=== PATIENT | female | born 1945 | race Caucasian/White ===

== ENCOUNTER → 2016-09-27 | Outpatient (CLI) | payer MEDICARE ==
--- NOTE | 2016-09-28 11:24 | MM ---
Reason for exam: screening (asymptomatic). Last mammogram was performed 1 year and 1 month ago. History: Patient is postmenopausal and has history of other cancer at age 51. Took hormonal contraceptives for 2 years beginning at age 22. Took estrogen for 10 years beginning at age 51. Took progesterone for 10 years beginning at age 51. Physical Findings: A clinical breast exam by your physician is recommended on an annual basis and results should be correlated with mammographic findings. MG 3D Screening Mammo W/Cad Bilateral CC and MLO view(s) were taken. Prior study comparison: August 15, 2015, bilateral MG screening mammo w CAD. July 18, 2014, bilateral MG screening mammo w CAD. June 26, 2013, bilateral digital screening mammo w/CAD. There are scattered fibroglandular densities. No significant changes when compared with prior studies. ASSESSMENT: Benign, BI-RAD 2 RECOMMENDATION: Routine screening mammogram of both breasts in 1 year.
== END | disposition home or self-care (01) ==
LOC: RADMAMWWP 10:51
PROVIDERS: ATTEND Obstetrics & Gynecology
DX: Z12.31 Encounter for screening mammogram for malignant neoplasm of breast (principal)
CPT/HCPCS: 77063; G0202

== ENCOUNTER → 2017-11-28 | Outpatient (CLI) | payer MEDICARE ==
--- NOTE | 2017-11-28 16:56 | BD ---
EXAMINATION TYPE: Axial Bone Density DATE OF EXAM: 11/28/2017 COMPARISON: NONE CLINICAL HISTORY: 72-year-old female osteoporosis screening Height: 5 FT Weight: 197 FRAX RISK QUESTIONS: RISK FACTORS HISTORY OF: Surgery to Spine/Hip(right/left)/Wrist (right/left): SPINAL STENOSIS RELEASE.LT HIP REPLACED 2015 When: 2013 Active: YES Postmenopausal woman: AGE 51 Take estrogen and/or progesterone medications: TOOK HRT FOR SEV YEARS NOT TAKEN FOR A LONG TIME Lost more than 2 inches in height since high school: YES MEDICATIONS: Additional Medications: MONTELUKAST, PRAVASTATIN, LOSARTIN, ESCITALOPRAM, TRIMATERENE, ASPIRIN, POTAS SIUM , MULTI VITTAMADOL. SONATA Additional History: MONIE CARPAL TUNNEL SURG EXAM MEASUREMENTS: Bone mineral density about the R hip (g/cm2): 1.157 T Score values are as follows: -----R Neck: 0.9 -----R Total: 1.5 Bone mineral density has: DECREASED -6.4 % since study of: 2012 Bone mineral density about the R Wrist (g/cm2): Bone mineral density about the L Wrist (g/cm2): 0.712 T Score values are as follows: -----Dist. R+U: 1.2 -----Prox. R+U: 0.7 -----Radius total: 0.6 BASELINE FOREARM IMPRESSION: Measurements taken in the right hip and left forearm. Normal (Values between +1 and -1 indicate normal bone mass). Consider repeating this study in 5 year s or sooner if there is some new clinical indication. NOTE: T-SCORE=SD OF THE YOUNG ADULT MEAN.
--- NOTE | 2017-11-30 10:49 | MM ---
Reason for exam: screening (asymptomatic). Last mammogram was performed 1 year and 2 months ago. History: Patient is postmenopausal and has history of other cancer at age 51. Took hormonal contraceptives for 2 years beginning at age 22. Took estrogen for 10 years beginning at age 51. Took progesterone for 10 years beginning at age 51. Physical Findings: A clinical breast exam by your physician is recommended on an annual basis and results should be correlated with mammographic findings. MG 3D Screening Mammo W/Cad Bilateral CC and MLO view(s) were taken. Prior study comparison: September 27, 2016, bilateral MG 3d screening mammo w/cad. August 15, 2015, bilateral MG screening mammo w CAD. The breast tissue is heterogeneously dense. This may lower the sensitivity of mammography. Benign appearing bilateral calcifications. No suspicious abnormality. No significant changes when compared with prior studies. ASSESSMENT: Benign, BI-RAD 2 RECOMMENDATION: Routine screening mammogram of both breasts in 1 year.
== END | disposition home or self-care (01) ==
LOC: RADMAMWWP 15:18
PROVIDERS: ATTEND Obstetrics & Gynecology
DX: Z12.31 Encounter for screening mammogram for malignant neoplasm of breast (principal); Z13.820 Encounter for screening for osteoporosis
CPT/HCPCS: 77063; 77067; 77080

== ENCOUNTER → 2018-12-19 | Outpatient (CLI) | payer MEDICARE ==
--- NOTE | 2018-12-21 10:44 | MM ---
Reason for exam: screening (asymptomatic). Last mammogram was performed 1 year and 1 month ago. History: Patient is postmenopausal and has history of other cancer at age 51. Took hormonal contraceptives for 2 years beginning at age 22. Took estrogen for 10 years beginning at age 51. Took progesterone for 10 years beginning at age 51. Physical Findings: A clinical breast exam by your physician is recommended on an annual basis and results should be correlated with mammographic findings. MG 3D Screening Mammo W/Cad Bilateral CC and MLO view(s) were taken. Prior study comparison: November 28, 2017, bilateral MG 3d screening mammo w/cad. September 27, 2016, bilateral MG 3d screening mammo w/cad. The breast tissue is heterogeneously dense. This may lower the sensitivity of mammography. Benign appearing bilateral calcifications. No suspicious abnormality. No significant changes when compared with prior studies. ASSESSMENT: Benign, BI-RAD 2 RECOMMENDATION: Routine screening mammogram of both breasts in 1 year.
== END | disposition home or self-care (01) ==
LOC: RADMAMWWP 13:20
PROVIDERS: ATTEND Obstetrics & Gynecology
DX: Z12.31 Encounter for screening mammogram for malignant neoplasm of breast (principal)
CPT/HCPCS: 77063; 77067

== ENCOUNTER → 2020-01-28 | Outpatient (CLI) | payer MEDICARE ==
--- NOTE | 2020-01-30 09:37 | MM ---
Reason for exam: screening (asymptomatic). Last mammogram was performed 1 year and 1 month ago. History: Patient is postmenopausal and has history of other cancer at age 51. Took hormonal contraceptives for 2 years beginning at age 22. Took estrogen for 10 years beginning at age 51. Took progesterone for 10 years beginning at age 51. Physical Findings: A clinical breast exam by your physician is recommended on an annual basis and results should be correlated with mammographic findings. MG 3D Screening Mammo W/Cad Bilateral CC and MLO view(s) were taken. Prior study comparison: December 19, 2018, bilateral MG 3d screening mammo w/cad. November 28, 2017, bilateral MG 3d screening mammo w/cad. There are scattered fibroglandular densities. No significant changes when compared with prior studies. ASSESSMENT: Benign, BI-RAD 2 RECOMMENDATION: Routine screening mammogram of both breasts in 1 year.
== END | disposition home or self-care (01) ==
LOC: RADMAMWWP 14:52
PROVIDERS: ATTEND Obstetrics & Gynecology
DX: Z12.31 Encounter for screening mammogram for malignant neoplasm of breast (principal)
CPT/HCPCS: 77063; 77067

== ENCOUNTER → 2020-08-27 | Outpatient (CLI) | payer MEDICARE ==
--- NOTE | 2020-08-27 13:59 | P.PAINCN ---
History of Present Illness - Reason for Consult Consult date: 08/27/20 - History of Present Illness This is 75 years old female with a chronic history of severe low back pain, started more than 9 years ago, in 2013 she had lumbar decompression surgery, she had some benefit from the surgery , but she continued to have severe low back pain, the intensity of the pain increased over the last couple of years, the pain is constant and increases with any activity interference with her quality of life, interfere with activity of daily livings, she tried medication without any significant benefit, she tried physical therapy, without any significant benefit, she denies any motor or sensory deficits denies any fever or night sweats, and there is no change in the bowel movement or urination Past Medical History Past Medical History: Hypertension History of Any Multi-Drug Resistant Organisms: None Reported Past Surgical History: Tubal Ligation Additional Past Surgical History / Comment(s): laminectomy 2013 Past Anesthesia/Blood Transfusion Reactions: No Reported Reaction Smoking Status: Former smoker Past Alcohol Use History: Daily Additional Past Alcohol Use History / Comment(s): a glass of wine every night Past Drug Use History: None Reported Medications and Allergies Home Medications Medication Instructions Recorded Confirmed Type Aspirin [Adult Low Dose Aspirin EC] 81 mg PO DAILY 08/27/20 08/27/20 History Escitalopram [Lexapro] 10 mg PO DAILY 08/27/20 08/27/20 History Montelukast [Singulair] 10 mg PO DAILY 08/27/20 08/27/20 History Multivitamin [Multivitamins Adult 1 each PO DAILY 08/27/20 08/27/20 History Gummies] Potassium Chloride [Klor-Con 20] 20 meq PO DAILY 08/27/20 08/27/20 History Pravastatin Sodium [Pravachol] 20 mg PO DAILY 08/27/20 08/27/20 History Psyllium Husk [Metamucil] 0.4 gm PO DAILY 08/27/20 08/27/20 History traMADol-ACETAMINOP 37.5-325MG 37.5 - 325 mg PO DAILY 08/27/20 08/27/20 History [Ultracet] Allergies Allergy/AdvReac Type Severity Reaction Status Date / Time narcotics Allergy Severe Nausea & Uncoded 08/27/20 13:50 Vomiting Physical Exam Vitals: Intake and Output 08/26/20 08/27/20 08/27/20 22:59 06:59 14:59 Other: Weight 86.275 kg Physical Examinations : -Constitutiona : Cooperative , not in acute distress . -HEENT : nech : supple , no Lymphadenopathy , normal thyroid size . : eyes : no ptosis , no icterus, no photophobia . - neurologic : Cranial nerve II to XII intact , no focal neurological deffecit . -psychatric : alert , oriented X 3 , appropriate affect , intact judgment and insight . -Lymphatic : no Lymphadenopathy . - musculoskeltal : Cervical Spine motor stregnth in the deltoid and biceps, normal right side , normal Left side motor stregnth biceps and the wrist extensors normal right side ,normal left side . motor stregnth in the triceps muscle . normal Right side , normal Left side Lumber spine moter stegnth lower extremities ,thigh and legs 5/5 Right side , 5/5 Left side deep tendon reflexes : normal Knee Jerk , normal ankle Jerk lumber facet Loading Test =positive Right , positive Left Range of motion of the lumbar spine Flexion 30 degrees, extension 10 degrees strait leg raising test = negative bilaterally Fabere test= negative bilaterally. Sever tenderness over the Sacroiliac joint on the Right , and Left sides Gaenslen test= positive right ,and positive left . Seated flexion test= positive right ,and positive Left . Results Comments: MRI of the lumbar spine= L3 4 and L4-L5 lumbar laminectomy, multilevel lumbar bulging disc disease and multilevel lumbar facet arthropathy Multilevel lumbar foraminal stenosis, multilevel lumbar spinal canal stenosis Assessment and Plan Plan: Assessment and plan=1-lumbar spondylosis with lumbar facet arthropathy without myelopathy. 2-lumbar degenerative disc disease. 3-lumbar spinal stenosis. 4-history of lumbar laminectomy laminectomy at L3 4 and L4-L5 5-bilateral sacroiliitis. Patient will be good candidate to have diagnostic medial branch block lumbar area at L3, L4, L5 bilaterally and possible RFA Time with Patient: Greater than 30 PQRS Measure Charge Sheet Measure #130: Documentation of Current Meds in Medical Chart: Patient's medications documented in chart Measure #226: Tobacco Use: Screen & Cessation Intervention: Pt not a tobacco user Measure #111: Pneumonia Vaccination: Pneumococcal vaccine NOT administered or previously given Measure #47: Advance Care Plan: Advance care planning discussed & documented, pt chose/unable to give Measure #412: Opioid Treatment Agreement: No documentation of signed opioid treatment agreement Measure #408: Opioid Therapy Follow-up Evaluation: Patient had NO f/u eval minimum every 3 months during opioid therapy Measure #317: Preventitive Care & Scrn High Bld Press & F/U: Normal blood pressure, f/u not required Measure #128: Body Mass Index (BMI) Screening & Follow-up: BMI documented ABOVE normal parameters - f/u documented Measure #131: Pain Assessment & Follow-up: Pain positive & plan documented, Follow-up scheduled Measure #431: Unhealthy Alcohol Use Preventative Care & Scrn: Patient not buddy ntified as an unhealthy alcohol user PQRS Narrative: Pain Intensity [Bilateral 8 Lower Back] Scale Used Numeric (1 - 10) Hx Alcohol Use (MH) Yes: a glass of wine at night Home Medications: Ambulatory Orders Aspirin [Adult Low Dose Aspirin EC] 81 mg PO DAILY 08/27/20 Escitalopram [Lexapro] 10 mg PO DAILY 08/27/20 Montelukast [Singulair] 10 mg PO DAILY 08/27/20 Multivitamin [Multivitamins Adult Gummies] 1 each PO DAILY 08/27/20 Potassium Chloride [Klor-Con 20] 20 meq PO DAILY 08/27/20 Pravastatin Sodium [Pravachol] 20 mg PO DAILY 08/27/20 Psyllium Husk [Metamucil] 0.4 gm PO DAILY 08/27/20 traMADol-ACETAMINOP 37.5-325MG [Ultracet] 37.5 - 325 mg PO DAILY 08/27/20
[2020-08-27 14:13] VITALS: BP 122/75; PULSE 94; RESP 18; TEMP 98
== END ==
LOC: PNWHC3 12:58
PROVIDERS: ATTEND Specialist
DX: M47.816 Spondylosis without myelopathy or radiculopathy, lumbar region (principal); M51.36 Other intervertebral disc degeneration, lumbar region; M48.061 Spinal stenosis, lumbar region without neurogenic claudication; M96.1 Postlaminectomy syndrome, not elsewhere classified; M46.1 Sacroiliitis, not elsewhere classified; I10 Essential (primary) hypertension; Z87.891 Personal history of nicotine dependence
CPT/HCPCS: 99211

== ENCOUNTER → 2020-09-19 | Day surgery (SDC) | payer MEDICARE ==
[2020-09-17 13:01] VITALS: BMI 35.9
[~2020-09-19] MED LIST: IOPAMIDOL M200 10 ML VIAL ONE; LACTATED RINGERS 1,000 ML IV ONE; LIDOCAINE 1% INJ 10MG/ML (20 ML MDV) ONE; MIDAZOLAM 2 MG/2 ML VIAL ONE; ONDANSETRON 4 MG/2 ML VIAL ONE; ROPIVACAINE 5MG/ML 20ML VIAL ONE; TRIAMCINOLONE ACETONIDE 40 MG/ML 1 ML VIAL ONE
[2020-09-19 14:05] VITALS: TEMP 97.4
--- NOTE | 2020-09-19 14:20 | P.PCN ---
Date of Procedure: 09/19/20 Description of Procedure: PREOPERATIVE DIAGNOSIS : Lumbar spondylosis with Facet Arthropathy without myelopathy POSTOPERATIVE DIAGNOSIS: same PROCEDURE: first Diagnostic lumbar medial branch block with fluoroscopy at L3, L4, L5 [bilateral] which covers facets L4-5 and L5-S1 ANESTHESIA: Local anesthetic; moderate IV sedation with Versed and fentanyl with anesthesia team Fluoroscopy was used for the procedure and images were saved in the radiology portion of the chart. Surgeon: Jag Montero MD PROCEDURE INDICATION: Lumbar back pain without radiculopathy, not responsive to conservative management. PROCEDURE DESCRIPTION: the patient was seen and identified in the preop holding area , risks and benefits and possible complications of the procedure and alternatives were discussed with the patient, and the patient agreed to proceed with the procedure and signed the consent . IV was started , vital signs were monitored during the procedure and fluoroscopy was used to maximize the benefit and accuracy of the needle placement, and sedation was given to decrease patient anxiety. Patient was taken to the procedure room and placed in prone position. The lumbar region was prepped using chlorhexidineX-2. Under strict sterile technique using AP fluoroscopy the bilateral sacral ala were identified and using ipsilateral oblique fluoroscopy ,the junction of the transverse process and the superior articulating process of the L4, L5 vertebra which corresponds to the fluoroscopy image of the eye of the Nickolas dog for the medial branches were identified. Subsequently, after local infiltration of skin with lidocaine 1% 0.2 mL at each level , a 25-gauge 5" Quincke-type needle was placed at the junction of the base of the transverse process and the superior articular process at the appropriate level as well as the sacral ala, and the needle was advanced until the periosteum contacted, needle placement confirmed with AP and oblique fluoroscopy, 0.2 mL of Isovue 200 per level was injected which revealed no vascular uptake and after negative aspiration. I lila up 5 mL of 0.5% ropivacaine and 1 mL of 40 mg/mL kenalog and injected 1 mL of this injectate at each level and the needle subsequently removed . A total of [2 levels injected bilaterally] At the end of the procedure and the needles were removed and a bandage applied after the skin was cleaned. The patient was taken to recovery room in stable condition and monitors in the recovery room for 20-30 minutes and discharged home in stable condition after discharge criteria met and patient will follow up in clinic in 2 weeks EBL: Minimal COMPLICATION: None.
[2020-09-19 14:42] VITALS: BP 136/86; PULSE 72; RESP 16
--- NOTE | 2020-09-20 12:14 | FL ---
Fluoroscopy HISTORY: Pain 15 seconds fluoroscopy time supplied to the referring clinician. 3 intraoperative C-arm images docum ent the procedure. See dictated report from anesthesia.
== END ==
LOC: ORPAIN 13:41
PROVIDERS: ATTEND Anesthesiology
DX: M47.816 Spondylosis without myelopathy or radiculopathy, lumbar region (principal); I10 Essential (primary) hypertension; E78.5 Hyperlipidemia, unspecified; Z79.1 Long term (current) use of non-steroidal anti-inflammatories (NSAID); Z79.82 Long term (current) use of aspirin; Z79.52 Long term (current) use of systemic steroids; Z79.899 Other long term (current) drug therapy; Z88.5 Allergy status to narcotic agent
CPT/HCPCS: 64493; 64494; J2250; J3301; J2405; J2001; Q9966; J2795

== ENCOUNTER → 2020-10-08 | Outpatient (CLI) | payer MEDICARE ==
[2020-10-08 09:58] VITALS: BP 131/69; PULSE 79; RESP 18; TEMP 98.6
--- NOTE | 2020-10-08 10:18 | P.PN ---
Subjective Progress Note Date: 10/08/20 This is a 75-year-old morbidly obese lady with history of chronic axial lower back pain with occasional radiation to the left thigh. The patient denies any numbness in the lower extremities. She has received a diagnostic lumbar medial branch block recently which gave her more than 80% of pain relief. Patient denies new-onset weakness, bowel/bladder incontinence, or any other signs or symptoms of cauda equina syndrome. There are no signs of acute intoxication, and no indications of medication diversion or overuse. In addition to above, 13-point review of systems is also negative for chest pain, shortness of breath, changes in vision, changes in hearing, new onset weakness, abdominal pain, diarrhea, extreme fatigue, malaise, fever, skin changes, homicidal or suicidal ideation, or bowel or bladder incontinence. Vital Signs: Reviewed in EMR Gen: AAOx3, NAD HEENT: PERRLA,hearing grossly normal Pulm: resp unlabored Neck: supple, trachea midline Neuro exam of the lower extremities: Normal muscle strength bilaterally Straight leg raising test: Gabriel's test: Range of motion of the lumbar spine: Facet loading test: Positive bilaterally Tenderness in the paravertebral musculature: Positive in the lumbar area bilaterally Neuro: CN II-XII grossly intact, Imaging: Reviewed in EMR/chart Assessment: Lumbar spondylosis without myelopathy Lumbar DDD Morbid obesity Plan: 1. Explanation: Opioid and psychological risk scores were reviewed. Diagnoses, prognoses, and multiple treatment options including but not limited to physical therapy, interventional therapies, adjuvant medical therapies, narcotic medication therapies, and surgery were discussed with the patient and all questions were answered to the patient's satisfaction. 2. Opioid agreement: Signed with the patient and the patient is warned not to use opioids while driving or before driving and not to combine opioids with benzodiazepines or alcohol. 3. Counseling: The patient was counseled extensively on SMOKING CESSATION, BODY MASS INDEX, EXERCISE. Specifically, the patient was instructed regarding the importance of smoking cessation, obesity, and exercise in the context of both chronic pain and overall health. 4. Procedures: Scheduled for the second diagnostic lumbar medial branch block for L4 5 and L5-S1 levels laterally 5. Consultations: None 6. Investigations: None 7. Medications: None prescribed 8. Disposition: Proceed with the above-mentioned procedure as soon as possible 9. Maps were reviewed and were appropriate. Objective - Vital Signs Vital signs: Vital Signs Temp 98.6 F 10/08/20 09:55 Pulse 79 10/08/20 09:55 Resp 18 10/08/20 09:55 BP 131/69 10/08/20 09:55 Pulse Ox 97 10/08/20 09:55
== END ==
LOC: PNWHC3 09:49
PROVIDERS: ATTEND Anesthesiology
DX: M51.36 Other intervertebral disc degeneration, lumbar region (principal); M47.816 Spondylosis without myelopathy or radiculopathy, lumbar region; E66.01 Morbid (severe) obesity due to excess calories; Z68.35 Body mass index [BMI] 35.0-35.9, adult; Z88.5 Allergy status to narcotic agent
CPT/HCPCS: 99211

== ENCOUNTER 2020-11-14 06:58 | Day surgery (SDC) | payer MEDICARE ==
[2020-11-13 10:10] VITALS: BMI 38.1
[2020-11-14 07:22] VITALS: TEMP 97.7
[2020-11-14] MEDS ORDERED: LACTATED RINGERS 1,000 ML IV ONE (07:23)
[2020-11-14] MEDS ORDERED: ROPIVACAINE 5MG/ML 20ML VIAL ONE (07:36)
[2020-11-14] MEDS ORDERED: IOPAMIDOL M200 10 ML VIAL ONE (07:36)
[2020-11-14] MEDS ORDERED: TRIAMCINOLONE ACETONIDE 40 MG/ML 1 ML VIAL ONE (07:36)
[2020-11-14] MEDS ORDERED: MIDAZOLAM 2 MG/2 ML VIAL ONE (07:36)
--- NOTE | 2020-11-14 07:50 | P.PCN ---
Date of Procedure: 11/14/20 Description of Procedure: PREOPERATIVE DIAGNOSIS : Lumbar spondylosis with Facet Arthropathy without myelopathy POSTOPERATIVE DIAGNOSIS: same PROCEDURE: second Diagnostic lumbar medial branch block with fluoroscopy at L3, L4, L5 [bilateral] which covers facets L4-5 and L5-S1 ANESTHESIA: Local anesthetic; moderate IV sedation with Versed with anesthesia team Fluoroscopy was used for the procedure and images were saved in the radiology portion of the chart. Surgeon: Jag Montero MD PROCEDURE INDICATION: Lumbar back pain without radiculopathy, not responsive to conservative management. PROCEDURE DESCRIPTION: the patient was seen and identified in the preop holding area , risks and benefits and possible complications of the procedure and alternatives were discussed with the patient, and the patient agreed to proceed with the procedure and signed the consent . IV was started , vital signs were monitored during the procedure and fluoroscopy was used to maximize the benefit and accuracy of the needle placement, and sedation was given to decrease patient anxiety. Patient was taken to the procedure room and placed in prone position. The lumbar region was prepped using chlorhexidineX-2. Under strict sterile technique using AP fluoroscopy the bilateral sacral ala were identified and using ipsilateral oblique fluoroscopy ,the junction of the transverse process and the superior articulating process of the L4, L5 vertebra which corresponds to the fluoroscopy image of the eye of the Nickolas dog for the medial branches were identified. Subsequently, after local infiltration of skin with lidocaine 1% 0.2 mL at each level , a 25-gauge 5" Quincke-type needle was placed at the junction of the base of the transverse process and the superior articular process at the appropriate level as well as the sacral ala, and the needle was advanced until the periosteum contacted, needle placement confirmed with AP and oblique fluoroscopy, 0.2 mL of Isovue 200 per level was injected which revealed no vascular uptake and after negative aspiration. I lila up 5 mL of 0.5% ropivacaine and 1 mL of 40 mg/mL kenalog and injected 1 mL of this injectate at each level and the needle subsequently removed . A total of [2 levels injected bilaterally] At the end of the procedure and the needles were removed and a bandage applied after the skin was cleaned. The patient was taken to recovery room in stable condition and monitors in the recovery room for 20-30 minutes and discharged home in stable condition after discharge criteria met and patient will follow up in clinic in 2 weeks EBL: Minimal COMPLICATION: None.
[2020-11-14] MEDS ORDERED: IV FLUID CONTINUATION 1,000 ML IV ONE (08:04)
[2020-11-14 08:09] VITALS: BP 121/78; PULSE 80; RESP 16
--- NOTE | 2020-11-14 08:30 | FL ---
EXAMINATION TYPE: FL guided pain mgmt statistic DATE OF EXAM: 11/14/2020 FLUOROSCOPY Fluoroscopy time of 6 seconds was used during bilateral lumbar facet block. 3 image/s document/s the procedure.
== END 2020-11-14 08:31 | disposition home or self-care (01) ==
LOC: ORPAIN 06:58
PROVIDERS: ATTEND Anesthesiology
DX: M47.816 Spondylosis without myelopathy or radiculopathy, lumbar region (principal); M19.90 Unspecified osteoarthritis, unspecified site; Z79.82 Long term (current) use of aspirin
CPT/HCPCS: 64495; 64493; 64494; J2250; J3301; Q9966; J2795

== ENCOUNTER → 2020-12-03 | Outpatient (CLI) | payer MEDICARE ==
--- NOTE | 2020-12-03 13:12 | P.PN ---
Subjective Progress Note Date: 12/03/20 This is a 75-year-old lady with history of axial lower back pain which resp onded favorably to a diagnostic lumbar medial branch block. The patient had almost 100% of pain relief right after the procedure was lasted for a few weeks however the pain is coming back at this point. Patient denies new-onset weakness, bowel/bladder incontinence, or any other signs or symptoms of cauda equina syndrome. There are no signs of acute intoxication, and no indications of medication diversion or overuse. In addition to above, 13-point review of systems is also negative for chest pain, shortness of breath, changes in vision, changes in hearing, new onset weakness, abdominal pain, diarrhea, extreme fatigue, malaise, fever, skin changes, homicidal or suicidal ideation, or bowel or bladder incontinence. Vital Signs: Reviewed in EMR Gen: AAOx3, NAD HEENT: PERRLA,hearing grossly normal Pulm: resp unlabored Neck: supple, trachea midline Neuro exam of the lower extremities: Normal muscle strength bilaterally in the lower extremities Range of motion of the lumbar spine: Facet loading test: Positive in the lumbar area Tenderness in the paravertebral musculature: Positive tenderness in the lumbar paravertebral musculature Neuro: CN II-XII grossly intact, Imaging: Reviewed in EMR/chart Assessment: Lumbar spondylosis without myelopathy Morbid obesity Plan: 1. Explanation: When patients on opioids, opioid and psychological risk scores were reviewed. Diagnoses, prognoses, and multiple treatment options including but not limited to physical therapy, interventional therapies, adjuvant medical therapies, narcotic medication therapies, and surgery were discussed with the patient and all questions were answered to the patient's satisfaction. 2. Opioid agreement:When patients are prescribed opoids through our clinic, opioid agreement is signed with the patient and the patient is warned not to use opioids while driving or before driving and not to combine opioids with benzodiazepines or alcohol. 3. Counseling: When patient is smoking or obese, the patient was counseled extensively on SMOKING CESSATION, BODY MASS INDEX, EXERCISE. Specifically, the patient was instructed regarding the importance of smoking cessation, obesity, and exercise in the context of both chronic pain and overall health. 4. Procedures: Scheduled for lumbar medial branch RFA for the levels L4 5 and L5-S1 bilaterally under fluoroscopic guidance 5. Consultations: None 6. Investigations: None 7. Medications: None prescribed 8. Disposition: Proceed with the above-mentioned procedure as soon as possible 9. Maps were reviewed and were appropriate.
[2020-12-03 13:16] VITALS: BP 134/77; PULSE 98; RESP 18; TEMP 98.1
== END ==
LOC: PNWHC3 12:36
PROVIDERS: ATTEND Anesthesiology
DX: M47.816 Spondylosis without myelopathy or radiculopathy, lumbar region (principal); E66.01 Morbid (severe) obesity due to excess calories; Z68.35 Body mass index [BMI] 35.0-35.9, adult; Z88.5 Allergy status to narcotic agent
CPT/HCPCS: 99211

== ENCOUNTER 2021-01-09 09:37 | Day surgery (SDC) | payer MEDICARE ==
[2021-01-06 14:55] VITALS: BMI 38.1
[~2021-01-09 09:37] MED LIST changes: -IOPAMIDOL M200 10 ML VIAL ONE; -LACTATED RINGERS 1,000 ML IV ONE; +LACTATED RINGERS 1,000 ML IV SCH; -LIDOCAINE 1% INJ 10MG/ML (20 ML MDV) ONE; -MIDAZOLAM 2 MG/2 ML VIAL ONE; -ONDANSETRON 4 MG/2 ML VIAL ONE; -ROPIVACAINE 5MG/ML 20ML VIAL ONE; -TRIAMCINOLONE ACETONIDE 40 MG/ML 1 ML VIAL ONE
[2021-01-09 09:52] VITALS: TEMP 98
[2021-01-09] MEDS ORDERED: LACTATED RINGERS 1,000 ML IV ONE (09:52)
[2021-01-09] MEDS ORDERED: ROPIVACAINE 5MG/ML 20ML VIAL ONE (10:46)
[2021-01-09] MEDS ORDERED: MIDAZOLAM 2 MG/2 ML VIAL ONE (10:46)
[2021-01-09] MEDS ORDERED: methylPREDNISolone ACETATE 40 MG/ML 1 ML VIAL ONE (10:46)
--- NOTE | 2021-01-09 11:19 | P.PCN ---
Date of Procedure: 01/09/21 Procedure(s) Performed: PREOPERATIVE DIAGNOSIS: 1-Lumbar Spondylosis with Facet Arthropathy without myelopathy. 2- Lumber degenerative disc disease. POSTOPERATIVE DIAGNOSIS: 1- Lumbar Spondylosis with Facet Arthropathy without myelopathy. 2- Lumber degenerative disc disease. PROCEDURES : Bilateral Radiofrequency thermocoagulation, L3 , L4 , and L5 medial branch, with fluoroscopic guidance (fluoroscopy images available in the radiology department) ( to denervate the facet joint at Bilateral L4-5 ,and L5-S1 levels ). ANESTHESIA: Monitored anesthesia care, as per anesthesia department . EBL: Minimal PROCEDURE INDICATION: The patient with low back pain secondary to lumbar facet arthropathy who had more than 50% relief of her pain with previous diagnostic lumbar medial branch block with bupivacaine. PROCEDURE DESCRIPTION / TECHNIQUE: The patient was seen and identified in the preoperative area. Risks, benefits, complications, including but not limited to risk of infection ,bleeding , allergic reactions to the medications and no complete pain releife , and alternatives were discussed with the patient, the patient agreed to proceed with the procedure and signed the consent. IV was started. Vital signs remained stable throughout the procedure. Patient was taken to the OR and time out was completed. The patient was placed in the prone position on the procedure table. The lumber area was prepped and draped in the usual sterile fashion. . Vital signs were closely monitored during the procedure .IV sedation was used during the procedure to decrease patients anxiety. Using AP and then oblique fluoroscopy, the ``eye of the Nickolas dog co rresponding to the connection between the superior and transverse articular processes of right L3, L4, and L5 were identified, marked, and localized with 1% lidocaine. Subsequently, a 18 -zi radiofrequency cannula with a 10- mm active tip was advanced guided by fluoroscopy to each of the``eyes of the Nickolas dog at right L3, L4, and L5. Each site then underwent sensory testing at 50 Hz and 0 to 1 volt and motor testing at 2.5 Hz and 0 to 3 volt with local stimulation, but no radicular symptoms down the legs. Thereafter each sites underwent radiofrequency thermocoagulation at 80 degrees celsius for 90 seconds after injecting 0.5 ml of PF Ropivacaine 1ml, then after the thermocoagulation done , 1 ml of the block solution containing Depo-Medrol 20 mg and 3 ml of Ropivacaine 0.5% was injected at the right L3 , L4 , and L5 , levels after negative aspiration of CSF and blood and with no paresthesias. Cannulas were retracted while injecting lidocaine 1% until the needle is out. The same procedure was repeated at the level of Left L3, L4, and L5 levels. At the end of the procedure, the skin was cleansed and bandages were applied. COMPLICATIONS: No acute complications. DISPOSITION / PLANS: The patient was placed in a supine position and transferred to the recovery area in a stable condition for observation and was discharged from the recovery room after meeting discharge criteria. Home discharge instructions given to the patient by the staff. The patient was reexamined prior to discharge. The patient will schedule a follow up in the clinic in 2-4 weeks.
--- NOTE | 2021-01-09 11:41 | FL ---
EXAMINATION TYPE: FL guided pain mgmt statistic DATE OF EXAM: 01/09/2021 HISTORY: Pain RF LUM MONIE. DR VARGAS. FL TIME 16 SEC
[2021-01-09 12:00] VITALS: BP 119/76; PULSE 85; RESP 16
[2021-01-09] MEDS ORDERED: IV FLUID CONTINUATION 1,000 ML IV ONE (12:00)
== END 2021-01-09 12:26 | disposition home or self-care (01) ==
LOC: ORPAIN 09:37
PROVIDERS: ATTEND Specialist
DX: M47.816 Spondylosis without myelopathy or radiculopathy, lumbar region (principal); M51.36 Other intervertebral disc degeneration, lumbar region; I10 Essential (primary) hypertension; E78.5 Hyperlipidemia, unspecified; M19.90 Unspecified osteoarthritis, unspecified site; Z79.82 Long term (current) use of aspirin; Z79.899 Other long term (current) drug therapy; Z88.5 Allergy status to narcotic agent
CPT/HCPCS: 64635; 64636; J2250; J1030; J2795

== ENCOUNTER → 2021-01-28 | Outpatient (CLI) | payer MEDICARE ==
--- NOTE | 2021-01-29 13:47 | MM ---
Reason for exam: screening (asymptomatic). Last mammogram was performed 1 year ago. History: Patient is postmenopausal and has history of other cancer at age 75. Took hormonal contraceptives for 2 years beginning at age 22. Took estrogen for 10 years beginning at age 51. Took progesterone for 10 years beginning at age 51. Physical Findings: A clinical breast exam by your physician is recommended on an annual basis and results should be correlated with mammographic findings. MG 3D Screening Mammo W/Cad Bilateral CC and MLO view(s) were taken. Prior study comparison: January 28, 2020, bilateral MG 3d screening mammo w/cad. December 19, 2018, bilateral MG 3d screening mammo w/cad. The breast tissue is heterogeneously dense. This may lower the sensitivity of mammography. Stable benign calcifications. There is no discrete abnormality. No significant changes when compared with prior studies. ASSESSMENT: Benign, BI-RAD 2 RECOMMENDATION: Routine screening mammogram of both breasts in 1 year.
== END | disposition home or self-care (01) ==
LOC: RADMAMWWP 15:42
PROVIDERS: ATTEND Obstetrics & Gynecology
DX: Z12.31 Encounter for screening mammogram for malignant neoplasm of breast (principal); Z78.0 Asymptomatic menopausal state; Z85.9 Personal history of malignant neoplasm, unspecified; Z79.3 Long term (current) use of hormonal contraceptives
CPT/HCPCS: 77063; 77067

== ENCOUNTER → 2021-02-02 | Outpatient (CLI) | payer MEDICARE ==
[2021-02-02 11:31] VITALS: BP 141/84; PULSE 103; RESP 18; TEMP 98.2
--- NOTE | 2021-02-02 11:48 | P.PN ---
Subjective Progress Note Date: 02/02/21 This is follow up visit for this 75 years old female with a chronic history of severe low back pain, Diagnosed with Lumbar spondylosis with facet arthropathy ,she had lumbar decompression surgery, recenletly we have done, had 60-70% improvement of her pain , today she is complaining of severe pain localizing the buttock area bilaterally, the pain is constant and increases with any activity interference with her quality of life, interfere with activity of daily livings, she tried medication without any significant benefit, she tried physical therapy, without any significant benefit, she denies any motor or sensory deficits denies any fever or night sweats, and there is no change in the bowel movement or urination Physical Examinations : -Constitutiona : Cooperative , not in acute distress . -HEENT : nech : supple , no Lymphadenopathy , normal thyroid size . : eyes : no ptosis , no icterus, no photophobia . - neurologic : Cranial nerve II to XII intact , no focal neurological deffecit . -psychatric : alert , oriented X 3 , appropriate affect , intact judgment and insight . -Lymphatic : no Lymphadenopathy . - musculoskeltal : Lumber spine moter stegnth lower extremities ,thigh and legs 5/5 Right side , 5/5 Left side deep tendon reflexes : normal Knee Jerk , normal ankle Jerk lumber facet Loading Test =negative Bilaterlly Range of motion of the lumbar spine Flexion 30 degrees, extension 10 degrees strait leg raising test = negative bilaterally Fabere test= negative bilaterally . Sever tenderness over the Sacroiliac joint on the Right , and Left sides Gaenslen test= positive right ,and positive left . Seated flexion test= positive right ,and positive Left . Distraction test= positive bilaterally Sacroiliac compression test= positive bilaterally Results MRI of the lumbar spine= L3 4 and L4-L5 lumbar laminectomy, multilevel lumbar bulging disc disease and multilevel lumbar facet arthropathy Multilevel lumbar foraminal stenosis, multilevel lumbar spinal canal stenosis Assessment and plan=1-lumbar spondylosis with lumbar facet arthropathy without myelopathy. 2-lumbar degenerative disc disease. 3-lumbar spinal stenosis. 4-history of lumbar laminectomy laminectomy at L3 4 and L4-L5 5-bilateral sacroiliitis. Patient will be good candidate to have bilateral sacroiliac joint steroid injection PQRS Measure Charge Sheet Measure #130: Documentation of Current Meds in Medical Chart: Patient's medications documented in chart Measure #226: Tobacco Use: Screen & Cessation Intervention: Pt not a tobacco user Measure #111: Pneumonia Vaccination: Pneumococcal vaccine NOT administered or previously given Measure #47: Advance Care Plan: Advance care planning discussed & documented, pt chose/unable to give Measure #412: Opioid Treatment Agreement: No documentation of signed opioid treatment agreement Measure #408: Opioid Therapy Follow-up Evaluation: Patient had NO f/u eval minimum every 3 months during opioid therapy Measure #317: Preventitive Care & Scrn High Bld Press & F/U: Normal blood pressure, f/u not required Measure #128: Body Mass Index (BMI) Screening & Follow-up: BMI documented ABOVE normal parameters - f/u documented Measure #131: Pain Assessment & Follow-up: Pain positive & plan documented, Follow-up scheduled Measure #431: Unhealthy Alcohol Use Preventative Care & Scrn: Patient not identified as an unhealthy alcohol user PQRS Narrative: Objective - Vital Signs Vital signs: Vital Signs Temp 98.2 F 02/02/21 11:28 Pulse 103 H 02/02/21 11:28 Resp 18 02/02/21 11:28 BP 141/84 02/02/21 11:28 Pulse Ox 95 02/02/21 11:28
== END ==
LOC: PNWHC3 11:23
PROVIDERS: ATTEND Specialist
DX: M47.816 Spondylosis without myelopathy or radiculopathy, lumbar region (principal); M51.36 Other intervertebral disc degeneration, lumbar region; M48.061 Spinal stenosis, lumbar region without neurogenic claudication; M46.1 Sacroiliitis, not elsewhere classified; Z98.1 Arthrodesis status; Z88.5 Allergy status to narcotic agent
CPT/HCPCS: 99211

== ENCOUNTER 2021-03-10 06:50 | Day surgery (SDC) | payer MEDICARE ==
[2021-03-09 08:34] VITALS: BMI 38.1
[2021-03-10] MEDS ORDERED: LACTATED RINGERS 1,000 ML IV ONE ×2 (07:14)
[2021-03-10 07:18] VITALS: TEMP 97.1
[2021-03-10] MEDS ORDERED: LACTATED RINGERS 1,000 ML IV SCH (08:15)
[2021-03-10] MEDS ORDERED: methylPREDNISolone ACETATE 40 MG/ML 1 ML VIAL ONE (08:17)
[2021-03-10] MEDS ORDERED: LIDOCAINE 1% INJ 10MG/ML (20 ML MDV) ONE (08:17)
[2021-03-10] MEDS ORDERED: IOPAMIDOL M200 10 ML VIAL ONE (08:17)
[2021-03-10] MEDS ORDERED: MIDAZOLAM 2 MG/2 ML VIAL ONE (08:17)
--- NOTE | 2021-03-10 08:37 | P.PCN ---
Date of Procedure: 03/10/21 Description of Procedure: PREOPERATIVE DIAGNOSIS: Sacroiliac joint dysfunction POSTOPERATIVE DIAGNOSIS: Sacroiliac joint dysfunction. PROCEDURES: 1. Bilateral Sacroiliac joint steroid injection 2. Sacroiliac joint arthrogram. SURGEON: Marleny Nguyễn ANESTHESIA: Local and IV sedation : Versed 1 mg EBL: None. Specimen removed: None Fluoroscopic image: saved to electronic medical records. PROCEDURE INDICATIONS: This patient with a history of chronic low back pain, and sacroiliac joint dysfunction. Patient had previous bilateral sacroiliac S1, S2, S3 lateral branch radiofrequency ablation, but procedure was helped only for a few weeks. The patient had good pain relief with bilateral SI joint injections. Patient tried conservative therapy. Came here for intervention management. PROCEDURE DESCRIPTION: The patient was seen and identified in the preoperative area. Risks, benefits, complications, and alternatives were discussed with the patient. The patient agreed to proceed with the procedure and signed the consent. IV was started, and vital signs were stable. Patient was taken to the OR and time out was completed. The patient was placed in the prone position on procedure table and a pillow was placed under the abdomen to reduce lumbar lordosis. The lumbosacral area was prepped and draped in the usual sterile fashion. Critical pause was taken. Vital signs were closely monitored during the procedure. For the right side, the fluoroscopic camera was placed in left oblique view and right SI joint lower pole was identified. Skin entry point was infiltrated with 1% lidocaine and 22-gauge 3.5 inch spinal needle was introduced into the inferior one-third of SI joint and after penetrating into the joint arthrogram was done. 0.5 ml of [id number] contrast was injected after negative aspiration for blood, and air and negative for paresthesia. Good spread of the contrast into the SI joint has been seen. Then again after negative aspiration of spinal fluid and blood and negative for neurological symptoms, 3 mL of a solution containing total 2.5 mL of 1% preservative-free lidocaine mixed with 40 mg oDepo-Medrol as injected. Needle was withdrawn intact. The entire procedure was repeated on the left side as above. Needle was withdrawn intact. Skin was cleansed, and bandages were applied. COMPLICATIONS: None. DISPOSITION / PLANS: The patient was placed in a supine position and transferred to the recovery area in a stable condition for observation and was discharged from the recovery room after meeting discharge criteria. Home discharge instructions given to the patient by the staff. The patient was reexamined prior to discharge. The patient will schedule for follow-up visit with the pain clinic in 4 weeks duration.
[2021-03-10] MEDS ORDERED: IV FLUID CONTINUATION 750 ML IV ONE (08:40)
--- NOTE | 2021-03-10 08:51 | FL ---
EXAMINATION TYPE: FL guided pain mgmt statistic DATE OF EXAM: 03/10/2021 CLINICAL HISTORY: Bilateral sacroiliac joint pain. TECHNIQUE: Fluoroscopy. COMPARISON: None. FINDINGS: Fluoroscopic guidance was provided during pain relief procedure performed by Dr. Nguyễn . A total of 3 seconds of fluoroscopic time was utilized during the procedure and two spot images are acquired. Images acquired shows needle localization at inferior level of bilateral sacroiliac joint s. IMPRESSION: As Above.
[2021-03-10 08:55] VITALS: RESP 20
[2021-03-10 09:03] VITALS: BP 105/68; PULSE 79
== END 2021-03-10 09:10 | disposition home or self-care (01) ==
LOC: ORPAIN 06:50
DX: M53.3 Sacrococcygeal disorders, not elsewhere classified (principal); I10 Essential (primary) hypertension; M19.90 Unspecified osteoarthritis, unspecified site; Z96.653 Presence of artificial knee joint, bilateral; Z96.641 Presence of right artificial hip joint; Z98.891 History of uterine scar from previous surgery; Z79.82 Long term (current) use of aspirin; Z88.5 Allergy status to narcotic agent
CPT/HCPCS: J2250; J1030; J2001 ×2; Q9966; G0260

== ENCOUNTER → 2021-04-06 | Outpatient (CLI) | payer MEDICARE ==
[2021-04-06 11:55] VITALS: BP 126/75; PULSE 95; RESP 18; TEMP 98.7
--- NOTE | 2021-04-07 09:32 | P.PN ---
Subjective Progress Note Date: 04/06/21 This is follow up visit for this 75 years old female with a chronic history of severe low back pain, Diagnosed with Lumbar spondylosis with facet arthropathy, bilateral sacroiliitis ,she had lumbar decompression surgery, recenletly we have done, bilateral sacroiliac joint steroid injection, patient currentely complaining of low back pain, the pain is constant and increases with any activity interference with her quality of life, interfere with activity of daily livings, she tried medication without any significant benefit, she tried physical therapy, without any significant benefit, she denies any motor or sensory deficits denies any fever or night sweats, and there is no change in the bowel movement or urination Physical Examinations : -Constitutiona : Cooperative , not in acute distress . -HEENT : nech : supple , no Lymphadenopathy , normal thyroid size . : eyes : no ptosis , no icterus, no photophobia . - neurologic : Cranial nerve II to XII intact , no focal neurological deffecit . -psychatric : alert , oriented X 3 , appropriate affect , intact judgment and insight . -Lymphatic : no Lymphadenopathy . - musculoskeltal : Lumber spine moter stegnth lower extremities ,thigh and legs 5/5 Right side , 5/5 Left side deep tendon reflexes : normal Knee Jerk , normal ankle Jerk lumber facet Loading Test =negative Bilaterlly Range of motion of the lumbar spine Flexion 30 degrees, extension 10 degrees strait leg raising test = negative bilaterally Fabere test= negative bilaterally . Sever tenderness over the Sacroiliac joint on the Right , and Left sides Gaenslen test= positive right ,and positive left . Seated flexion test= positive right ,and positive Left . Distraction test= positive bilaterally Sacroiliac compression test= positive bilaterally multiple trigger point identified in the lumbar paraspinal muscles Right >Left , and above the right iliac crest area Results MRI of the lumbar spine= L3 4 and L4-L5 lumbar laminectomy, multilevel lumbar bulging disc disease and multilevel lumbar facet arthropathy Multilevel lumbar foraminal stenosis, multilevel lumbar spinal canal stenosis Assessment and plan=1-lumbar spondylosis with lumbar facet arthropathy without myelopathy. 2-lumbar degenerative disc disease. 3-lumbar spinal stenosis. 4-history of lumbar laminectomy laminectomy at L3 4 and L4-L5 5-bilateral sacroiliitis. 6-myofascial pain syndrome lumbar paraspinal muscles Patient will be good candidate to have trigger point injections lumbar paraspinal muscles ,and above the right iliac crest area PQRS Measure Charge Sheet Measure #130: Documentation of Current Meds in Medical Chart: Patient's medications documented in chart Measure #226: Tobacco Use: Screen & Cessation Intervention: Pt not a tobacco user Measure #111: Pneumonia Vaccination: Pneumococcal vaccine NOT administered or previously given Measure #47: Advance Care Plan: Advance care planning discussed & documented, pt chose/unable to give Measure #412: Opioid Treatment Agreement: No documentation of signed opioid treatment agreement Measure #408: Opioid Therapy Follow-up Evaluation: Patient had NO f/u eval minimum every 3 months during opioid therapy Measure #317: Preventitive Care & Scrn High Bld Press & F/U: Normal blood pressure, f/u not required Measure #128: Body Mass Index (BMI) Screening & Follow-up: BMI documented ABOVE normal parameters - f/u documented Measure #131: Pain Assessment & Follow-up: Pain positive & plan documented, Follow-up scheduled Measure #431: Unhealthy Alcohol Use Preventative Care & Scrn: Patient not identified as an unhealthy alcohol user PQRS Narrative: Objective - Vital Signs Vital signs: Vital Signs Temp 98.7 F 04/06/21 11:49 Pulse 95 04/06/21 11:49 Resp 18 04/06/21 11:49 BP 126/75 04/06/21 11:49 Pulse Ox 95 04/06/21 11:49 Intake & Output 04/06/21 04/07/21 04/07/21 18:59 06:59 18:59 Weight 86.183 kg
== END ==
LOC: PNWHC3 11:20
PROVIDERS: ATTEND Specialist
DX: M47.816 Spondylosis without myelopathy or radiculopathy, lumbar region (principal); M51.36 Other intervertebral disc degeneration, lumbar region; M48.061 Spinal stenosis, lumbar region without neurogenic claudication; M46.1 Sacroiliitis, not elsewhere classified; M79.18 Myalgia, other site; Z98.1 Arthrodesis status; Z88.5 Allergy status to narcotic agent
CPT/HCPCS: 99212

== ENCOUNTER 2021-05-21 08:11 | Day surgery (SDC) | payer MEDICARE ==
[2021-05-14 13:44] VITALS: BMI 35.9
[2021-05-21 08:39] VITALS: TEMP 97
[2021-05-21] MEDS ORDERED: MIDAZOLAM 2 MG/2 ML VIAL ONE (09:13)
[2021-05-21] MEDS ORDERED: fentaNYL (PF) 50 MCG/ML 2 ML AMP ONE (09:13)
[2021-05-21] MEDS ORDERED: ROPIVACAINE 5MG/ML 20ML VIAL ONE (09:13)
[2021-05-21] MEDS ORDERED: methylPREDNISolone ACETATE 40 MG/ML 1 ML VIAL ONE (09:13)
[2021-05-21] MEDS ORDERED: IV FLUID CONTINUATION 800 ML IV ONE (09:28)
--- NOTE | 2021-05-21 09:32 | P.PCN ---
Date of Procedure: 05/21/21 Procedure(s) Performed: Procedure= trigger point injections lumbar paraspinal muscles, 4 on the right side lumbar paraspinal muscles ,and 3 on the left side lumbar paraspinal muscles Preoperative diagnosis= 1-myofascial pain syndrome lumbar area 2-lumbar degenerative disc disease 3-lumbar facet arthropathy Postoperative diagnosis=Same as preop Diagnosis . Complication = none Condition= stable Anesthesia= moderate sedation with intravenous Versed 1 mg , and fentanyl 50 micrograms . Indication for the procedure= patient complaining of low back pain , examination was positive for multiple trigger point identified in the lumbar paraspinal muscles and patient diagnosed with myofascial pain syndrome, for this reason, she was good candidate for trigger point injection. Description of the procedure= procedure risk and benefits discussed with the patient, including but not limited, risk of infection and bleeding, and ALLERGIC reaction to the medication and not complete pain relief and patient agreed with the preceding patient taken to the operating room, placed in prone position or standard monitors applied to the patient then after induction of anesthesia back prepped with chlorhexidine 3 times , then under sterile technique each of the trigger point is identified in the preop holding area each one of them injected with 2 mL of the mixture of ropivacaine 0.5% 14 ML mixed, with 40 mg of Depo- Medrol mixed together ,and 2 mL injected at each trigger point after negative aspiration, there was no paresthesia during the injection, total of 7 trigger point identified and injected 4 on the right side lumbar paraspinal muscles ,and 2 ON the left side lumbar paraspinal muscles, patient tolerated the procedure well without any complication and she will follow up in the pain clinic in 2-3 weeks
[2021-05-21 09:39] VITALS: RESP 20
[2021-05-21 09:56] VITALS: BP 102/58; PULSE 80
== END 2021-05-21 09:58 | disposition home or self-care (01) ==
LOC: ORPAIN 08:11
PROVIDERS: ATTEND Specialist
DX: M79.18 Myalgia, other site (principal); M51.36 Other intervertebral disc degeneration, lumbar region; M47.816 Spondylosis without myelopathy or radiculopathy, lumbar region; Z79.82 Long term (current) use of aspirin; Z88.5 Allergy status to narcotic agent
CPT/HCPCS: 20553; J2250; J1030; J3010; J2795; 99152

== ENCOUNTER → 2021-06-15 | Outpatient (CLI) | payer MEDICARE ==
[2021-06-15 11:10] VITALS: BP 159/71; PULSE 87; RESP 18; TEMP 97.6
--- NOTE | 2021-06-15 11:30 | P.PN ---
Subjective Progress Note Date: 06/15/21 Principal diagnosis: A 76 yr old female with Dr. antunez side with a history of severe and chronic low back pain secondary to lumbar degenerative disc diseases and lumbar spondylosis with facet arthropathy presents today for an evaluation status post trigger point injections. Pain is located in the lower lumbar spine with the level at 5 out of 10 in intensity, dull and achy but elevates to 7 out of 10 in intensity by evening. Denies radiation of pain. Pain is alleviated with medications, injections, ice, heat, physical therapy, home exercise regimen, massage therapy and rest. Interventional pain procedures completed include TPI's and bilateral lumbar RFA Patient is currently on Aleve and Motrin OTC Patient denies any side effects of the medication(s), denies excessive drowsiness or sleepiness, denies suicidal ideation and reports that the current pain medication is helping to control the pain and improve activities of daily living. Patient denies any motor or sensory deficits. Patient denies any fever or night sweats, denies any change in the bowel movements or urination. Physical Examination: -Constitutional: Cooperative. Not in acute distress . -HEENT: Neck is supple. No lymphadenopathy. No thyromegaly. Normal thyroid size. Eyes: No ptosis , no icterus, no photophobia. ENT: No auditory deficits. Normal oropharynx. No Thrush. - Respiratory: Chest clear to auscultations bilaterally. No wheezing. No rhonchi. - Cardiovascular: Regular rate and rhythm. S1 / S2 , no S3 , no S4. - Gastrointestinal: Abdomen soft no tenderness. Bowel sounds positive in all four quadrants. No organomegaly. - Genitourinary: Deferred. - Neurologic: Cranial nerve II to XII intact. No focal neurological deficits. - Psychatric: Alert & oriented x 3. Matching mood & appropriate affect. Judgment and insight intact. - Lymphatic: No Lymphadenopathy. - Musculoskeletal: Cervical spine: Muscle bulk/ tone/ strength in the bilateral upper extremities normal. Facet loading test cervical area positive. Lumbar spine: Motor bulk/ tone/ strength lower extremities , thigh and legs : 5/5 Deep tendon reflexes : Normal Knee Jerk. Normal Ankle Jerk . Moderate vertebral body tenderness over the L4 and L5 Lumbar Facet Loading Test positive over the L4-L5 and L5-S1 bilaterally Straight Leg Raise: positive at 30 degree right side/ left side Cecy test: positive right side / left side Range of motion: Flexion of the lumbar spine 60 degrees Range of motion: Extension of the lumbar spine <20 degrees Severe tenderness over the Sacroiliac joint: right side / left side Assessment and plan: Chronic low back pain secondary to lumbar degenerative disc disease , lumbar spondylosis with facet arthropathy without myelopathy Recommendation of repeat bilateral RFA of the L4-L5 and L5-S1 Discontinue aspirin use 5 days prior to procedure Risks, benefits of procedure discussed and patient verbalized understanding All patient questions answered MAPS reviewed and it was appropriate. I have spent 31 minutes on patient care today. Dr Tay was available by phone for the evaluation of this patient. The time was used to review the medical records including relevant urine studies and Prescription history (MAPs), review of the available imaging, evaluation and examination of the patient, coordination of care with the medical staff and if applicable referring physicians, as well as creation of the medical record Objective - Vital Signs Vital signs: Vital Signs Temp 97.6 F 06/15/21 11:04 Pulse 87 06/15/21 11:04 Resp 18 06/15/21 11:04 BP 159/71 06/15/21 11:04 Pulse Ox 95 06/15/21 11:04 PQRS Measure Charge Sheet Mode of Arrival: Ambulatory - Pain Location Lower Back Non-Pharmacological Interventions: Exercise, Heat, Home Exercise, Inactivity, Massage, Physical Therapy, Position/Reposition, Sitting, Stretching Pharmacological Interventions: Block, PRN Medication PQRS Narrative: Blood Pressure 159/71 Pain Intensity [Lower Back] 5 Scale Used Numeric (1 - 10) Hx Alcohol Use (MH) Yes: a glass of wine at night Home Medications: Ambulatory Orders Aspirin [Adult Low Dose Aspirin EC] 81 mg PO HS 08/27/20 Escitalopram [Lexapro] 10 mg PO QAM 08/27/20 Losartan [Cozaar] 100 mg PO QAM 08/27/20 Montelukast [Singulair] 10 mg PO HS 08/27/20 Multivitamin [Multivitamins Adult Gummies] 1 each PO DAILY 08/27/20 Potassium Chloride [Klor-Con 20] 20 meq PO QAM 08/27/20 Pravastatin Sodium [Pravachol] 20 mg PO HS 08/27/20 Psyllium Husk [Metamucil] 0.4 gm PO DAILY 08/27/20 Triamterene-Hctz 37.5-25Mg [Maxzide 37.5-25] 2 tab PO QAM 08/27/20 Naproxen Sodium [Aleve] 220 mg PO DAILY PRN 09/17/20 Ibuprofen 800 mg PO DAILY PRN 11/13/20 diphenhydrAMINE HCL [Benadryl] 25 mg PO HS 01/06/21 Fluticasone Nasal [place] [Flonase Nasal [place]] 2 spray EA NOSTRIL DAILY 05/14/21
== END ==
LOC: PNWHC3 10:28
PROVIDERS: ATTEND Physician Assistant Medical
DX: M51.36 Other intervertebral disc degeneration, lumbar region (principal); M47.816 Spondylosis without myelopathy or radiculopathy, lumbar region; G89.29 Other chronic pain; Z88.5 Allergy status to narcotic agent
CPT/HCPCS: 99211

== ENCOUNTER 2021-07-24 07:44 | Day surgery (SDC) | payer MEDICARE ==
[2021-07-22 10:35] VITALS: BMI 35.9
[~2021-07-24 07:44] MED LIST changes: +LIDOCAINE 1% (10MG/ML) FOR IV START INTRADERMA PRN
[2021-07-24 08:27] VITALS: TEMP 97.7
[2021-07-24] MEDS ORDERED: ONDANSETRON 4 MG/2 ML VIAL ONE (08:28)
[2021-07-24] MEDS ORDERED: MIDAZOLAM 2 MG/2 ML VIAL ONE (09:03)
[2021-07-24] MEDS ORDERED: ROPIVACAINE 5MG/ML 20ML VIAL ONE (09:03)
[2021-07-24] MEDS ORDERED: fentaNYL (PF) 50 MCG/ML 2 ML AMP ONE (09:03)
[2021-07-24] MEDS ORDERED: PHENYLEPHRINE-0.9% NACL SYG 1,000 MCG/10 ML SYRINGE ONE (09:03)
[2021-07-24] MEDS ORDERED: methylPREDNISolone ACETATE 40 MG/ML 1 ML VIAL ONE (09:03)
--- NOTE | 2021-07-24 09:35 | P.PCN ---
Date of Procedure: 07/24/21 Procedure(s) Performed: PREOPERATIVE DIAGNOSIS: 1-Lumbar Spondylosis with Facet Arthropathy without myelopathy. 2- Lumber degenerative disc disease. POSTOPERATIVE DIAGNOSIS: 1- Lumbar Spondylosis with Facet Arthropathy without myelopathy. 2- Lumber degenerative disc disease. PROCEDURES : Bilateral Radiofrequency thermocoagulation, L3 , L4 , and L5 medial branch, with fluoroscopic guidance (fluoroscopy images available in the radiology department) ( to denervate the facet joint at Bilateral L4-5 ,and L5-S1 levels ). ANESTHESIA: Monitored anesthesia care, as per anesthesia department . EBL: Minimal PROCEDURE INDICATION: The patient with low back pain secondary to lumbar facet arthropathy who had more than 50% relief of her pain with previous diagnostic lumbar medial branch block with bupivacaine. PROCEDURE DESCRIPTION / TECHNIQUE: The patient was seen and identified in the preoperative area. Risks, benefits, complications, including but not limited to risk of infection ,bleeding , allergic reactions to the medications and no complete pain releife , and alternatives were discussed with the patient, the patient agreed to proceed with the procedure and signed the consent. IV was started. Vital signs remained stable throughout the procedure. Patient was taken to the OR and time out was completed. The patient was placed in the prone position on the procedure table. The lumber area was prepped and draped in the usual sterile fashion. . Vital signs were closely monitored during the procedure .IV sedation was used during the procedure to decrease patients anxiety. Using AP and then oblique fluoroscopy, the ``eye of the Nickolas green c orresponding to the connection between the superior and transverse articular processes of right L3, L4, and L5 were identified, marked, and localized with 1% lidocaine. Subsequently, a 18 -vu radiofrequency cannula with a 10- mm active tip was advanced guided by fluoroscopy to each of the``eyes of the Nickolas dog at right L3, L4, and L5. Each site then underwent sensory testing at 50 Hz and 0 to 1 volt and motor testing at 2.5 Hz and 0 to 3 volt with local stimulation, but no radicular symptoms down the legs. Thereafter each sites underwent radiofrequency thermocoagulation at 80 degrees celsius for 90 seconds after injecting 0.5 ml of PF Ropivacaine 1ml, then after the thermocoagulation done , 1 ml of the block solution containing Depo-Medrol 20 mg and 3 ml of Ropivacaine 0.5% was injected at the right L3 , L4 , and L5 , levels after negative aspiration of CSF and blood and with no paresthesias. Cannulas were retracted while injecting lidocaine 1% until the needle is out. The same procedure was repeated at the level of Left L3, L4, and L5 levels. At the end of the procedure, the skin was cleansed and bandages were applied. COMPLICATIONS: No acute complications. DISPOSITION / PLANS: The patient was placed in a supine position and transferred to the recovery area in a stable condition for observation and was discharged from the recovery room after meeting discharge criteria. Home discharge instructions given to the patient by the staff. The patient was reexamined prior to discharge. The patient will schedule a follow up in the clinic in 2-4 weeks.
[2021-07-24 09:48] VITALS: PULSE 77
[2021-07-24 10:01] VITALS: BP 112/70; RESP 20
[2021-07-24] MEDS ORDERED: IV FLUID CONTINUATION 750 ML IV ONE (10:05)
--- NOTE | 2021-07-24 10:53 | FL ---
EXAMINATION TYPE: FL guided pain mgmt statistic DATE OF EXAM: 07/24/2021 FLUOROSCOPY Fluoroscopy time of 19 seconds was used during bilateral lumbar radiofrequency ablation. 5 image/s d ocument/s the procedure.
== END 2021-07-24 10:14 | disposition home or self-care (01) ==
LOC: ORPAIN 07:44
PROVIDERS: ATTEND Specialist
DX: M51.36 Other intervertebral disc degeneration, lumbar region (principal); M47.816 Spondylosis without myelopathy or radiculopathy, lumbar region; I10 Essential (primary) hypertension; Z87.891 Personal history of nicotine dependence; I77.6 Arteritis, unspecified; Z98.891 History of uterine scar from previous surgery; Z98.51 Tubal ligation status; Z98.890 Other specified postprocedural states; Z96.659 Presence of unspecified artificial knee joint; Z79.1 Long term (current) use of non-steroidal anti-inflammatories (NSAID); Z79.82 Long term (current) use of aspirin; Z79.899 Other long term (current) drug therapy; Z88.5 Allergy status to narcotic agent
CPT/HCPCS: 64635; 64636; J2250; J1030; J2405; J3010; J2370; J2795

== ENCOUNTER → 2021-08-06 | Outpatient (CLI) | payer MEDICARE ==
[2021-08-06 14:04] VITALS: BP 158/67; PULSE 92; RESP 18; TEMP 98
--- NOTE | 2021-08-06 14:05 | P.PN ---
Subjective Progress Note Date: 08/06/21 Principal diagnosis: A 76 yr old female with a history of severe and chronic low back pain secondary to lumbar degenerative disc diseases and lumbar spondylosis with facet arthropathy presents today for evaluation status post bilateral RFA L3 to L5. Patient states she expressed 100% pain relief for 2 days but the pain relieving effects started to wear down thereafter. She feels she has 20% pain relief currently. Pain level is 1 out of 10 in intensity but escalates as high as 10 out of 10 in intensity by days end after ADLs. Pain is dull/ achy in the lower lumbar spine with radiation of pain left and right of midline bilaterally . Pain is alleviated with medications, injections, physical therapy in the past, exercise regimen at the [facility] 3 times a week, massage therapy twice a month and rest. Interventional pain procedures completed include BL RFA L3-5, BL SI joint injection, TPIs. Patient is currently on Aleve, Motrin OTC Patient denies any side effects of the medication(s), denies excessive drowsiness or sleepiness, denies suicidal ideation and reports that the current pain medication is helping to control the pain and improve activities of daily living. Patient denies any motor or sensory deficits. Patient denies any fever or night sweats, denies any change in the bowel movements or urination. Physical Examination: -Constitutional: Cooperative. Not in acute distress . -HEENT: Neck is supple. No lymphadenopathy. No thyromegaly. Normal thyroid size. Eyes: No ptosis , no icterus, no photophobia. ENT: No auditory deficits. Normal oropharynx. No Thrush. - Respiratory: Chest clear to auscultations bilaterally. No wheezing. No rhonchi. - Cardiovascular: Regular rate and rhythm. S1 / S2 , no S3 , no S4. - Gastrointestinal: Abdomen soft no tenderness. Bowel sounds positive in all four quadrants. No organomegaly. - Genitourinary: Deferred. - Neurologic: Cranial nerve II to XII intact. No focal neurological deficits. - Psychatric: Alert & oriented x 3. Matching mood & appropriate affect. J udgment and insight intact. - Lymphatic: No Lymphadenopathy. - Musculoskeletal: Cervical spine: Muscle bulk/ tone/ strength in the bilateral upper extremities normal. Facet loading test cervical area positive. Lumbar spine: Motor bulk/ tone/ strength lower extremities , thigh and legs : 5/5 Deep tendon reflexes : Normal Knee Jerk. Normal Ankle Jerk . Vertebral body tenderness to palpation over Lumbar Facet Loading Test positive Straight Leg Raise: positive at 30 degrees right side/ left side Gaenslen's Test positive Sacral spine : Severe tenderness over the Sacroiliac joint: right side / left side Range of motion: Flexion of the lumbar spine <60 degrees Range of motion: Extension of the lumbar spine <20 degrees Gaenslen's Test positive Cecy test: positive right side / left side Assessment and plan: Chronic low back pain secondary to lumbar degenerative disc disease , lumbar spondylosis with facet arthropathy without myelopathy Patient is disc interested in additional procedures at this time. She is disc interested in TPIs also. She will manage the pain with the aforementioned conservative treatments, medication management and integration of hot pulsating shower baths. All patient questions answered I have spent 31 minutes on patient care today. Dr Tay was available by phone for the evaluation of this patient. The time was used to review the medical records including relevant urine studies and Prescription history ( MAPs), review of the available imaging, evaluation and examination of the patient, coordination of care with the medical staff and if applicable referring physicians, as well as creation of the medical record PQRS Measure Charge Sheet Mode of Arrival: Ambulatory - Pain Location Lower Back Non-Pharmacological Interventions: Home Exercise, Massage, Physical Therapy, Sitting, Stretching Pharmacological Interventions: Block, PRN Medication PQRS Narrative: Blood Pressure 158/67 Pain Intensity [Lower Back] 1 Scale Used Numeric (1 - 10) Hx Alcohol Use (MH) Yes: a glass of wine at night Home Medications: Ambulatory Orders Aspirin [Adult Low Dose Aspirin EC] 81 mg PO HS 08/27/20 Escitalopram [Lexapro] 10 mg PO QAM 08/27/20 Losartan [Cozaar] 100 mg PO QAM 08/27/20 Montelukast [Singulair] 10 mg PO HS 08/27/20 Multivitamin [Multivitamins Adult Gummies] 1 each PO DAILY 08/27/20 Potassium Chloride [Klor-Con 20] 20 meq PO QAM 08/27/20 Pravastatin Sodium [Pravachol] 20 mg PO HS 08/27/20 Psyllium Husk [Metamucil] 0.4 gm PO DAILY 08/27/20 Triamterene-Hctz 37.5-25Mg [Maxzide 37.5-25] 2 tab PO QAM 08/27/20 Naproxen Sodium [Aleve] 220 mg PO DAILY PRN 09/17/20 Ibuprofen 800 mg PO DAILY PRN 11/13/20 diphenhydrAMINE HCL [Benadryl] 25 mg PO HS 01/06/21 Fluticasone Nasal [place] [Flonase Nasal [place]] 2 spray EA NOSTRIL DAILY 05/14/21
== END ==
LOC: PNWHC3 12:45
PROVIDERS: ATTEND Specialist
DX: M47.816 Spondylosis without myelopathy or radiculopathy, lumbar region (principal); M51.36 Other intervertebral disc degeneration, lumbar region; G89.29 Other chronic pain; Z88.5 Allergy status to narcotic agent
CPT/HCPCS: 99211

== ENCOUNTER → 2022-01-29 | Outpatient (CLI) | payer MEDICARE ==
--- NOTE | 2022-02-01 19:15 | MM ---
Reason for Exam: Screening (asymptomatic). Last screening mammogram was performed 12 month(s) ago. Patient History: Menarche at age 14. First Full-Term at age 25. Postmenopausal. Other cancer, age 75. Estrogen for 10 years from age 51 until age 61. Progesterone for 10 years from age 51 until age 61. Hormonal Contraceptives, starting at age 22 for 2 years. Risk Values: Laura 5 year model risk: 1.6%. NCI Lifetime model risk: 3.4%. Prior Study Comparison: 12/19/2018 Bilateral Screening Mammogram, [facility]. 01/28/2020 Bilateral Screening Mammogram, [facility]. 01/28/2021 Bilateral Screening Mammogram, [facility]. Tissue Density: There are scattered fibroglandular densities. Findings: Analyzed By CAD. Redemonstrated numerous benign round and punctate calcifications bilaterally. Areas of asymmetric density such as laterally and superiorly in the left breast remain unchanged when compared to priors. No significant change from prior exams. Overall Assessment: Benign, BI-RAD 2 Management: Screening Mammogram of both breasts in 1 year. 1. Patient should continue monthly self breast exams. 2. A clinical breast exam by your physician is recommended on an annual basis. 3. This exam should not preclude additional follow-up of suspicious palpable abnormalities. Electronically signed and approved by: Ese Julian M.D. Radiologist
== END | disposition home or self-care (01) ==
LOC: RADMAMWWP 12:38
PROVIDERS: ATTEND Obstetrics & Gynecology
DX: Z12.31 Encounter for screening mammogram for malignant neoplasm of breast (principal); Z78.0 Asymptomatic menopausal state
CPT/HCPCS: 77063; 77067

== ENCOUNTER 2022-02-13 17:32 | Emergency (ER) | payer MEDICARE ==
[2022-02-13] MEDS ORDERED: fentaNYL (PF) 50 MCG/ML 2 ML AMP IVP STA (18:11)
--- NOTE | 2022-02-13 18:15 | ED ---
Back Pain [facility] - General Chief Complaint: Back Pain/Injury Stated Complaint: Back pain Time Seen by Provider: 02/13/22 17:40 Source: patient Limitations: physical limitation - History of Present Illness Initial Comments: This patient is a 76-year-old woman who presents to have evaluation of low back pain radiating to left leg after she had lumbar fixation surgery on Tuesday. The patient states that she stayed overnight in the surgical center and then went home on . The surgeon is Dr. Ash Navarrete. She states that over the course of last night into today she has been having increasing pain and she states the pain is much worse if she attempts to move. She is taking hydrocodone which does give a little relief. She is denying saddle anesthesia, numbness of the leg, weakness. No change in bladder function. She has not had loss of bowel continence. MD Complaint: back pain Onset/Timin -: days(s) Similar Symptoms Previously: No Radiation: left leg Severity: severe Quality: aching Consistency: constant Improves With: none Worsens With: medication Associated Symptoms: denies other symptoms - Related Data Home Medications Medication Instructions Recorded Confirmed Aspirin [Adult Low Dose Aspirin EC] 81 mg PO HS 08/27/20 08/06/21 Escitalopram [Lexapro] 10 mg PO QAM 08/27/20 08/06/21 Losartan [Cozaar] 100 mg PO QAM 08/27/20 08/06/21 Montelukast [Singulair] 10 mg PO HS 08/27/20 08/06/21 Multivitamin [Multivitamins Adult 1 each PO DAILY 08/27/20 08/06/21 Gummies] Potassium Chloride [Klor-Con 20] 20 meq PO QAM 08/27/20 08/06/21 Pravastatin Sodium [Pravachol] 20 mg PO HS 08/27/20 08/06/21 Psyllium Husk [Metamucil] 0.4 gm PO DAILY 08/27/20 08/06/21 Triamterene-Hctz 37.5-25Mg 2 tab PO QAM 08/27/20 08/06/21 [Maxzide 37.5-25] Naproxen Sodium [Aleve] 220 mg PO DAILY PRN 09/17/20 08/06/21 Ibuprofen 800 mg PO DAILY PRN 11/13/20 08/06/21 diphenhydrAMINE HCL [Benadryl] 25 mg PO HS 01/06/21 08/06/21 Fluticasone Nasal [place] [Flonase 2 spray EA NOSTRIL DAILY 05/14/21 08/06/21 Nasal [place]] Allergies Allergy/AdvReac Type Severity Reaction Status Date / Time narcotics Allergy Severe Nausea & Uncoded 08/06/21 13:26 Vomiting Review of Systems ROS Statement: Those systems with pertinent positive or pertinent negative responses have been documented in the HPI. ROS Other: All systems not noted in ROS Statement are negative. Constitutional: Denies: fever, chills Respiratory: Denies: cough, dyspnea Cardiovascular: Denies: chest pain, palpitations Gastrointestinal: Reports: constipation. Denies: abdominal pain, vomiting, diarrhea Genitourinary: Denies: dysuria, hematuria Musculoskeletal: Reports: as per HPI, back pain Skin: Denies: rash Neurological: Denies: headache, weakness, numbness Past Medical History Past Medical History: Cancer, Hearing Disorder / Deafness, Hypertension, Osteoarthritis (OA) Additional Past Medical History / Comment(s): HAYFEVER, HX SKIN CANCER, LOW BACK PAIN. History of Any Multi-Drug Resistant Organisms: None Reported Past Surgical History: Section, Tubal Ligation Additional Past Surgical History / Comment(s): Laminectomy, BILATERAL TOTAL KNEE REPLACEMENTS, CARPAL TUNNEL RELEASE- RIGHT X2, LEFT X1, RIGHT THUMB ARTHROPLASTY, SECTION X3, BILATERAL CATARACT SURGERY WITH IMPLANTS, PAIN CLINIC PROCEDURE., L4-5 fusion Past Anesthesia/Blood Transfusion Reactions: Postoperative Nausea & Vomiting (PONV) Past Psychological History: No Psychological Hx Reported Smoking Status: Former smoker - Past Family History Mother Family Medical History: Cancer Additional Family Medical History / Comment(s): Skin cancer. Father Family Medical History: Deep Vein Thrombosis (DVT), Myocardial Infarction (MA), Pulmonary Embolus Brother(s) Family Medical History: Cancer, Pulmonary Embolus General Exam Limitations: physical limitation General appearance: alert, in no apparent distress Head exam: Present: atraumatic, normocephalic Eye exam: Present: normal appearance. Absent: scleral icterus, conjunctival injection Respiratory exam: Present: normal lung sounds bilaterally. Absent: respiratory distress, wheezes, rales, rhonchi, stridor Cardiovascular Exam: Present: regular rate, normal rhythm, normal heart sounds. Absent: systolic murmur, diastolic murmur, rubs, gallop GI/Abdominal exam: Present: soft. Absent: distended, tenderness, guarding, rebound, rigid, mass Extremities exam: Present: normal inspection, normal capillary refill. Absent: pedal edema, calf tenderness Back exam: Present: normal inspection, other (This patient has bilateral lumbar surgical incisions that are clean dry and intact. No abnormal erythema or swelling. There is mild lumbar tenderness. No evident deformity or step off.) Neurological exam: Present: alert. Absent: motor sensory deficit Skin exam: Present: warm, dry, intact, normal color. Absent: rash Course Vital Signs 02/13/22 02/13/22 02/13/22 17:39 18:29 20:00 Temperature 98.6 F 98.1 F Pulse Rate 79 105 H 86 Respiratory 18 16 16 Rate Blood Pressure 147/68 148/99 138/87 O2 Sat by Pulse 94 L 100 98 Oximetry 02/13/22 23:03 Temperature 98.2 F Pulse Rate 72 Respiratory 20 Rate Blood Pressure 146/71 O2 Sat by Pulse 97 Oximetry Medical Decision Making - Medical Decision Making Patient 76-year-old woman here with low back pain following surgery. We did give multiple rounds of medication but she is still not able to stand or bear weight. I did reach out to the physician who is covering for her surgeon, this was Dr. Pandya, who stated that they did have admitting privileges at [facility] and therefore patient is amenable to transfer there. Discussed case with your physician Dr. Wright. - Lab Data Result diagrams: 02/13/22 18:16 02/13/22 18:16 Lab Results 02/13/22 02/13/22 Range/Units 18:16 18:16 WBC 7.7 (3.8-10.6) k/uL RBC 3.99 (3.80-5.40) m/uL Hgb 11.9 (11.4-16.0) gm/dL Hct 35.2 (34.0-46.0) % MCV 88.2 (80.0-100.0) fL MCH 29.9 (25.0-35.0) pg MCHC 33.9 (31.0-37.0) g/dL RDW 13.2 (11.5-15.5) % Plt Count 192 (150-450) k/uL MPV 8.8 Neutrophils % 57 % Lymphocytes % 27 % Monocytes % 10 % Eosinophils % 2 % Basophils % 1 % Neutrophils # 4.4 (1.3-7.7) k/uL Lymphocytes # 2.1 (1.0-4.8) k/uL Monocytes # 0.8 (0-1.0) k/uL Eosinophils # 0.1 (0-0.7) k/uL Basophils # 0.0 (0-0.2) k/uL Sodium 134 L (137-145) mmol/L Potassium 3.7 (3.5-5.1) mmol/L Chloride 98 (98-107) mmol/L Carbon Dioxide 26 (22-30) mmol/L Anion Gap 10 mmol/L BUN 15 (7-17) mg/dL Creatinine 0.60 (0.52-1.04) mg/dL Est GFR (CKD-EPI)AfAm >90 (>60 ml/min/1.73 sqM) Est GFR (CKD-EPI)NonAf 90 (>60 ml/min/1.73 sqM) Glucose 110 H (74-99) mg/dL Calcium 9.8 (8.4-10.2) mg/dL C-Reactive Protein 14.6 H (<1.0) mg/dL Disposition Clinical Impression: Intractable low back pain Disposition: OTHER INSTITUTION NOT DEFINED Condition: Fair Is patient prescribed a controlled substance at d/c from ED?: No Referrals: Mert Rome MD [Primary Care Provider] - 1-2 days - Out of Hospital Transfer - Req. Specs Out of Hospital Transfer - Requested Specifics: Other Emergency Center
[2022-02-13] MEDS ORDERED: ONDANSETRON 4 MG/2 ML VIAL IVP STA (18:18)
[2022-02-13 18:40] LABS: Basophils % (A) 1 %; Eosinophils # (A) 0.1 k/uL (0-0.7); Eosinophils % (A) 2 %; HCT 35.2 % (34.0-46.0); HGB 11.9 gm/dL (11.4-16.0); Lymphocytes # (A) 2.1 k/uL (1.0-4.8); Lymphocytes % (A) 27 %; MCH 29.9 pg (25.0-35.0); MCHC 33.9 g/dL (31.0-37.0); MCV 88.2 fL (80.0-100.0); Mean Platelet Volume 8.8; Monocytes # (A) 0.8 k/uL (0-1.0); Monocytes % (A) 10 %; Neutrophils # (A) 4.4 k/uL (1.3-7.7); Neutrophils % (A) 57 %; Platelet Count 192 k/uL (150-450); RBC 3.99 m/uL (3.80-5.40); RDW 13.2 % (11.5-15.5); WBC 7.7 k/uL (3.8-10.6)
[2022-02-13 19:37] LABS: African American GFR (CKD) >90 (>60 ml/min/1.73 sqM); Anion Gap 10 mmol/L; Blood Urea Nitrogen 15 mg/dL (7-17); Calcium 9.8 mg/dL (8.4-10.2); Carbon Dioxide 26 mmol/L (22-30); Chloride 98 mmol/L (98-107); Glucose 110 mg/dL (74-99); Non-African American GFR(CKD) 90 (>60 ml/min/1.73 sqM); Potassium 3.7 mmol/L (3.5-5.1); Sodium 134 mmol/L (137-145)
--- NOTE | 2022-02-13 19:57 | CT ---
EXAMINATION TYPE: CT lumbar spine wo con DATE OF EXAM: 02/13/2022 COMPARISON: None HISTORY: back pain post-op fusion CT DLP: 1554.6 mGycm Automated exposure control for dose reduction was used. Images obtained from T12 through S3 vertebra without contrast. There are rods and screws fusing posteriorly the lumbar spine at L4-5. There is disc prosthesis at L4 -5. There is disc space narrowing throughout the lumbar spine with variable spurring and vacuum disc. There is no lumbar paraspinal mass. No compression fracture. There is laminectomy at L4. The sacroil iac joints are intact. There is a slight lumbar dextroscoliosis. Sacroiliac joints appear normal. IMPRESSION: Posterior fusion surgery. Multilevel spondylotic changes. No focal bone destruction. No pathologic fl uid collection. No complicating process seen.
[2022-02-13 20:08] LABS: C Reactive Protein 14.6 mg/dL (<1.0)
[2022-02-13 23:05] VITALS: BP 146/71; PULSE 72; RESP 20; TEMP 98.2
[2022-02-14] MEDS ORDERED: SODIUM CHLORIDE 0.9% 500 ML 500 ML IV STA (00:25)
== END 2022-02-14 01:29 | disposition other institution (70) ==
LOC: EC 17:32
DX: M54.50 Low back pain, unspecified (principal); I10 Essential (primary) hypertension; H91.90 Unspecified hearing loss, unspecified ear; Z87.891 Personal history of nicotine dependence; Z88.5 Allergy status to narcotic agent
CPT/HCPCS: 36415; 80048; 85025; 86140; 72131; 99284; 96374; 96375; J3360; J2405; J3010